=== PATIENT | female | born 1965 | race Caucasian/White ===

== ENCOUNTER 2016-09-17 13:07 | Outpatient (CLI) | payer OTHER ==
[2016-09-17] MEDS ORDERED: GABAPENTIN100 MG PO (16:49)
[2016-09-17] MEDS ORDERED: BENAZEPRIL HCL10 MG PO (16:50)
[2016-09-17] MEDS ORDERED: PROVERA10 MG PO (16:50)
[2016-09-17] MEDS ORDERED: ACETAMINOPHEN325 MG PO (16:51)
[2016-09-18] MEDS ORDERED: VITAMIN D-31000 UNIT PO (16:44)
[2016-09-18] MEDS ORDERED: FEOSOL65 MG PO (16:44)
[2016-09-18] MEDS ORDERED: VITAMIN C500 M1 PO (16:44)
[2016-09-18] MEDS ORDERED: CALCIUM MAGNESIUM & PO (16:49)
== END 2016-09-17 23:00 ==
LOC: LAB SRH 13:07
DX: Z01.818 Encounter for other preprocedural examination (principal); N85.2 Hypertrophy of uterus; N93.9 Abnormal uterine and vaginal bleeding, unspecified
CPT/HCPCS: 90001; 90004; 90047; 90074; 90155; 90197; 90364; 91004; 92863; 95059

== ENCOUNTER 2016-09-20 06:39 | Day surgery (SDC) | payer OTHER ==
--- NOTE | 2016-09-13 19:49 | HISTORY AND PHYSICAL ---
ADMITTED: 09/20/2016 CHIEF COMPLAINT: 1. Menometrorrhagia 2. Pelvic pain 3. Pain with intercourse HISTORY OF PRESENT ILLNESS: The patient came in here several visits ago complaining of prolonged heavy periods and pelvic pain and ultrasound done in [facility] on 2016 shows an enlarged uterus 12.3 cm x 6.5 cm. It also shows a normally thickened endometrium less than 10 mm, to be over 27. The patient had an endometrial biopsy performed, which is probed deeper than 10 cm. Given this information and her ability to control this bleeding with hormones, patient was given 2 options of supracervical hysterectomy with morcellation versus a laparoscopic-assisted vaginal hysterectomy. The patient had no WANDA, stress urinary incontinence complaints on several evaluations and so Dr. Sutton and gynecology was not obtained. The patient is given information on seeding, i.e., the rare possibility of some cancerous tissue, precancerous tissue to be lost during the morcellation process, is advised that this will most likely be done in a contained system after a supracervical hysterectomy is performed intra-abdominally. A plastic bag will be inserted through the umbilicus and the uterus will be manually extracted for morcellation. The patient understands and accepts. Risks and benefits have been discussed with patient, as well as was informed consent. Possibility of blood loss, need for transfusion, infection, damage to pelvic and nonpelvic organs requiring additional surgery were discussed in detail on several occasions. The patient understands, accepts. The possibility of ICU stay, intubation, coma and also described with infrequent [employer] motor vehicle accidents. MEDICAL/SURGICAL HISTORY: Menstrual history: Onset age 14, otherwise history negative. No significant contraceptive, history. Obstetric history: Normal vaginal delivery x3 in 1988, 1991 and 1997, largest 8 pounds 11 ounces. Past surgical history: Appendectomy, tonsillectomy, adenoidectomy, bilateral tubal ligation. Her Pap smear negative. Endometrial biopsy performed by me negative. Medical history: Hypertension in the past. MEDICATIONS: 1. Gabapentin 100 mg b.i.d. 2. Provera 10 mg b.i.d., by me. 3. Benazepril 10 mg daily. 4. Acetaminophen p.r.n. ALLERGIES: 1. CODEINE. SOCIAL HISTORY: Occasional alcohol. Negative for tobacco, drugs. FAMILY HISTORY: Noncontributory. Mother has some hypertension. No diabetes. No skin cancer in family. REVIEW OF SYSTEMS: The patient alert and oriented x3, doing well. Genitourinary: Purpose of surgery. Cardiovascular: No shortness of breath or chest pain. Gastrointestinal: Daily bowel movements. PHYSICAL EXAMINATION: VITAL SIGNS: Stable; 177, 5 foot 6 inches (66 inches), blood pressure, pulse, and temperature normal. SKIN: Normal. Integument: Normal. HEENT: Hair normal. HEENT grossly intact. BREASTS: Not done. LUNGS: Clear. HEART: Regular rate and rhythm. ABDOMEN: Benign, nontender. EXTREMITIES: No significant clubbing, cyanosis, erythema, edema. PELVIC: Top normal size uterus is from endometrial biopsy performed by me. RECTAL: Not done, deferred. LAB/IMAGING: Laboratory: Pending. IMPRESSION: 1. Twelve-week enlarged uterus with 27 mm endometrium as cause for menometrorrhagia. PLAN: Supracervical hysterectomy, morcellation and container was available, bilateral salpingectomy due to age of 51, hormones may or may not be given later. Informed consent, risk and benefits given above.
[~2016-09-20 06:39] MED LIST: ACETAMINOPHEN325 MG PO; BENAZEPRIL HCL10 MG PO; CALCIUM MAGNESIUM & PO; FEOSOL65 MG PO; GABAPENTIN100 MG PO; PROVERA10 MG PO; VITAMIN C500 M1 PO; VITAMIN D-31000 UNIT PO
[2016-09-20] MEDS ORDERED: PERCOCET1 TA1 PO (11:22)
--- NOTE | 2016-09-20 11:23 | Provider's Discharge Care Plan ---
Problem, Goal, Plan Problem List 1. Post-operative pain Goals: Improve disease control Instructions: Follow up as needed
--- NOTE | 2016-09-20 11:23 | Provider's Discharge Care Plan ---
Problem, Goal, Plan Problem List 1. Post-operative pain Goals: Improve disease control Instructions: Follow up as needed
--- NOTE | 2016-09-20 11:55 | OPERATIVE REPORT ---
DATE OF SURGERY: 09/20/2016 [employer] MACHINE OPERATOR: Rosamaria Meyer DO SURGEON: Roby Jacinto MD PREOPERATIVE DIAGNOSES: 1. Menorrhagia 2. Pelvic pain 3. Enlarged uterus 4. Thickened endometrium POSTOPERATIVE DIAGNOSES: 1. Menorrhagia 2. Pelvic pain 3. Enlarged uterus 4. Thickened endometrium 5. Twelve week size uterus PROCEDURE PERFORMED: 1. Supracervical 4 puncture laparoscopic hysterectomy with bilateral salpingectomy with morcellation. ANESTHESIA: Intubation, general endotracheal, remainder of the case with Marlon Short MD; Anesthesiologist: YOSSI Samson. INJECTABLES: Subcutaneous medications 20 mL for 4 puncture sites, 0.5% bupivacaine and 1:200,000 epinephrine. SURGICAL FINDINGS: Enlarged boggy posterior very vascular large uterus. See 4 pictures. COMPLICATIONS: None. CONDITION: Good. ESTIMATED BLOOD LOSS: Less than 20 mL. FLUIDS: 900. DRAINS: 250. No blood. IMPLANTS/GRAFTS: None. PATHOLOGY SPECIMEN: Supracervical hysterectomy approximately 12-week size, BSO with morcellation. SURGICAL TECHNIQUE: The patient was prepped and draped in the usual fashion. A time-out was taken. The patient had been given 2 grams of Ancef, 4 ports were placed in the usual fashion. Veress needle was placed without difficulty. The 11 mm trocar was placed and three 5's were then placed under direct visualization suprapubic and bilateral. There was a significantly enlarged posterior boggy uterus noted. The procedure was performed in the usual fashion. The infundibulopelvic ligament/broad ligament was selected and dissected laterally internally to remove ovaries and tubes pictures, see pictures taken at each side. The transverse cervical ligaments were then dissected down to the lower uterine segment and then the bladder flap was developed. The Thunderbeat was used to dissect in the usual fashion. Minimal blood loss noted throughout. The specimen was dissected off with good hemostasis with a J-hook. The next step was to place the 15 mm right port with the disposable morcellator. This was done without difficulty. The procedure was then done without difficulty, removed the uterus. The endometrial lining was thickened and was removed by pulling the contents into the disposable drill with shaft and remove the shaft and removed this very loose type tissue, which was not easily grasped. At this point, 2 liters of irrigation was performed to remove all particles that could be visualized to prevent seeding. At this point, a picture of the liver was taken as well. The cuff , good hemostasis was visualized and a picture was taken. At this time, the 3 ports were removed under direct visualization. The 11 mm port subumbilical was placed. A 4-0 was used to put a [id number] into each of the 11 and 15 mm port sites. Steri-Strips were placed. Sponge, needle, tape and instrument count was correct x2. The patient tolerated the procedure well and went to the recovery room in good condition.
[2016-09-20 12:58] VITALS: BP 137/74
== END 2016-09-20 13:55 | disposition home or self-care (01) ==
LOC: OR SRH 06:39 → SCU SRH 06:40 → OR SRH 08:15
PROVIDERS: Obstetrics & Gynecology
PROC: 0UT24ZZ Resection of Bilateral Ovaries, Percutaneous Endoscopic Approach (ICD-10-PCS; principal; 2016-09-20 09:00)
PROC: 0UT74ZZ Resection of Bilateral Fallopian Tubes, Percutaneous Endoscopic Approach (ICD-10-PCS; principal; 2016-09-20 09:00)
PROC: 0UT94ZZ Resection of Uterus, Percutaneous Endoscopic Approach (ICD-10-PCS; principal; 2016-09-20 09:00)
DX: N92.0 Excessive and frequent menstruation with regular cycle (principal); N85.2 Hypertrophy of uterus; N85.00 Endometrial hyperplasia, unspecified; R10.2 Pelvic and perineal pain
CPT/HCPCS: 29240; 50002; 60001; 70002; 80102; 80212; 80248; 82669; 82794; 82897; 83587; 83718; 83982; 84038